=== PATIENT | female | born 1990 | race Two or more races ===

== ENCOUNTER 2016-09-18 16:07 | Emergency (ER) | payer MEDICAID ==
[~2016-09-18] VITALS: Ht 170.2 cm; Wt 147.4 kg
[2016-09-18 16:43] VITALS: BP 153/106
== END 2016-09-18 17:02 | disposition home or self-care (01) ==
LOC: ER 16:12
DX: J02.9 Acute pharyngitis, unspecified (principal); Z88.6 Allergy status to analgesic agent; Z88.8 Allergy status to other drugs, medicaments and biological substances

== ENCOUNTER 2016-11-28 14:55 | Emergency (ER) | payer MEDICAID ==
[~2016-11-28] VITALS: Ht 170.2 cm; Wt 140.6 kg
[2016-11-28 15:16] VITALS: BP 167/103
[2016-11-28 17:04] LABS: Urine Bilirubin Negative (Negative); Urine Blood Negative /uL (Negative); Urine Color Yellow (Yellow); Urine Glucose Normal (Normal); Urine Ketone Negative (Negative); Urine Mucus FEW (None Seen); Urine Nitrite Negative (Negative); Urine RBC 1 /hpf (0 - 4); Urine Squamous Epithelial Cell FEW /hpf (<5); Urine Urobilinogen Normal (Negative)
== END 2016-11-28 16:52 | disposition home or self-care (01) ==
LOC: ER 14:59
DX: R07.89 Other chest pain (principal); Z88.1 Allergy status to other antibiotic agents; Z88.6 Allergy status to analgesic agent; Y08.89XA Assault by other specified means, initial encounter; Y93.89 Activity, other specified; Y99.8 Other external cause status; Y92.89 Other specified places as the place of occurrence of the external cause
CPT/HCPCS: 72070; 81001; 81025; 93005

== ENCOUNTER 2017-08-19 18:29 | Emergency (ER) | payer MEDICAID ==
[~2017-08-19] VITALS: Ht 170.2 cm; Wt 171.0 kg
[2017-08-19 18:58] VITALS: BP 149/94
== END 2017-08-20 03:37 | disposition left against medical advice (07) ==
LOC: ER 18:29
DX: R51 Headache (principal); Z53.21 Procedure and treatment not carried out due to patient leaving prior to being seen by health care provider

== ENCOUNTER → 2020-01-26 | Emergency (ER) | payer OTHER, MEDICAID ==
[~2020-01-26] VITALS: Ht 170.2 cm; Wt 162.4 kg
[2020-01-26 19:00] VITALS: BP 153/81
== END | disposition home or self-care (01) ==
LOC: ER 16:37
DX: S46.311A Strain of muscle, fascia and tendon of triceps, right arm, initial encounter (principal); M62.830 Muscle spasm of back; V43.52XA Car driver injured in collision with other type car in traffic accident, initial encounter; Y93.89 Activity, other specified; Y92.488 Other paved roadways as the place of occurrence of the external cause; Y99.8 Other external cause status
CPT/HCPCS: 71046; 72040; 73030